=== PATIENT | male | born 1950 | race Caucasian/White ===

== ENCOUNTER 2019-05-13 00:20 | Observation (INO) ==
[2019-05-13] MEDS ORDERED: ASPIRIN PO ONE (00:36)
[2019-05-13] MEDS ORDERED: NITROGLYCERIN SL ONE (00:45)
[2019-05-13 01:19] LABS: BASO# 0.01 X1000 (0.0-0.2); BASO% 0.2 % (0.0-0.8); EOS# 0.25 X1000 (0.0-0.7); EOS% 3.8 % (0.0-10.0); HEMATOCRIT 37.3 % (42.0-52.0); HEMOGLOBIN 12.8 g/dL (14.0-18.0); IMM GRAN# 0.02 X1000 (0.0-0.04); IMM GRAN% 0.3 % (0.0-0.5); LYMPH# 1.18 X1000 (1.2-3.4); LYMPH% 17.7 % (20.5-51.1); MCH 31.2 PG (27-31); MCHC 34.3 g/dL (33-37); MONO# 0.59 X1000 (0.11-0.59); MONO% 8.9 % (1.7-9.3); MPV 10.5 FL (7.4-10.4); NEUT# 4.61 X1000 (1.4-6.5); NEUT% 69.1 % (42.2-75.2); PLT 124 X1000 (130-400); RDW 14.2 % (11.5-14.5); WBC 6.66 X1000 (4.8-10.8)
[2019-05-13 01:28] LABS: INR 0.92; PROTIME 13.1 Seconds (11.0-16.0)
[2019-05-13 01:29] LABS: PTT 28.1 Seconds (22.3-41.8)
[2019-05-13 01:50] LABS: ALB/GLOB RATIO 2.2; ALBUMIN 4.2 g/dL (3.5-5.0); CALCIUM 9.1 mg/dL (8.8-10.2); CREATININE 1.2 mg/dL (0.7-1.2); POTASSIUM 3.5 mmol/L (3.5-5.1); TOTAL BILIRUBIN 0.55 mg/dL (0.20-1.00); TOTAL PROTEIN 6.1 g/dL (6.3-8.3)
--- NOTE | 2019-05-13 02:16 | PROVIDER DOCUMENTATION ---
This chart was entered by Manisha Oneil Scribe, acting as scribe for Sy Crum DO. HPI-Chest Pain - General Chief Complaint: Chest Pain Stated Complaint: HEART PT--CHEST PAIN Time Seen by Provider: 05/13/19 00:45 Source: patient Allergies/Adverse Reactions: Patient Allergies Allergy/AdvReac Type Severity Reaction Status Date / Time meperidine HCl * Allergy Intermediate "CRAZY" Verified 07/24/13 16:46 [From Demerol] Penicillins Allergy Unknown Unknown Verified 07/24/13 16:46 Home Medications: Home Medication List Medication Instructions Recorded Confirmed Last Taken Type Amlodipine Besylate 10 mg PO DAILY 07/24/13 07/24/13 07/24/13 08:00 History Aspirin 81 mg PO DAILY 07/24/13 07/24/13 07/24/13 08:00 History Atorvastatin Calcium 40 mg PO QPM 07/24/13 07/24/13 07/23/13 22:00 History Clopidogrel Bisulfate [Clopidogrel] 75 mg PO DAILY 07/24/13 07/24/13 07/23/13 21:00 History Fosinopril Sodium 40 mg PO DAILY 07/24/13 07/24/13 07/24/13 08:00 History Gabapentin 100 mg PO TID 07/24/13 07/24/13 07/24/13 08:00 History Hydrocodone/APAP 10 mg/325 mg 1 each PO Q8H PRN PRN 07/24/13 07/24/13 07/24/13 16:30 History [[place]-10] Hydrocodone/Acetaminophen [[place] 1 each PO Q6H PRN PRN #12 tablet 07/24/13 U nknown Rx 10-325 Tablet] Ibuprofen [Motrin Drops] 600 mg PO TID 07/24/13 07/24/13 07/21/13 History Isosorbide Mononitrate [Imdur] 120 mg PO DAILY PRN 07/24/13 07/24/13 07/10/13 History Metformin HCl 500 mg PO BID 07/24/13 07/24/13 07/24/13 08:00 History Metoprolol Tartrate 50 mg PO BID 07/24/13 07/24/13 07/24/13 08:00 History Omeprazole 20 mg PO QAM 07/24/13 07/24/13 07/24/13 08:00 History Triamterene/Hydrochlorothiazid 1 each PO QAM 07/24/13 07/24/13 07/24/13 08:00 History [Triamterene-Hctz 37.5-25 mg Tb] - History of Present Illness-CP Nature of Presenting Problem: Pt is 68/m presenting to ED w/ CP that started about 11:30 tonight. pt was in bed and it woke him up from sleep. He sts that the pain is more left sided and sharp, rating it at 4/10. Pt did go down his L arm some. pt has hx of 3 stents that were put in in March and had open heart surgery 16 years ago. Pt denies any n/v, diaphoresis or edema. Pt did take 81mg aspirin at home. Location: reports: substernal (L sided) Chest Pain Radiation: reports: arms (L arm radiation) Quality of Pain: reports: sharp Severity in ED: moderate Onset/Duration: 1-3 hours ago Timing: still present Context/Activities at Onset: reports: sleep Modifying Factors: improves with: nothing Associated Symptoms: denies: abdominal pain, nausea, shortness of breath, vomi ting Nitro Today/Relief: no nitro taken today Aspirin Treatment Today: 81 mg x 1 Prior Chest Pain/Cardiac Workup: reports: other Similar Symptoms Previously?: Yes Recently Seen Here or By Another Healthcare Provider: No Review of Systems - Adult - REVIEW OF SYSTEMS - ADULT Constitutional: reports: no symptoms reported. denies: chills, fever Eyes: reports: no symptoms reported Ears, Nose, Mouth & Throat: reports: no symptoms reported Cardiovascular: reports: chest pain Respiratory: reports: no symptoms reported. denies: cough, shortness of breath Gastrointestinal: reports: no symptoms reported. denies: abdominal pain, diarrhea, nausea, vomiting Genitourinary: reports: no symptoms reported Musculoskeletal: reports: no symptoms reported Integumentary: reports: no symptoms reported Neurological: reports: no symptoms reported. denies: dizziness/vertigo, headache/migraines Psychiatric: reports: no symptoms reported Endocrine: reports: no symptoms reported Hematologic/Lymphatic: reports: no symptoms reported Allergic/Immunologic: reports: no symptoms reported All Other Systems: Reviewed and Negative Past History - Adult - PAST MEDICAL HISTORY-ADULT Review of Records: reports: Old Records Reviewed, Nursing Assessment Review, Medications Reviewed, Social history reviewed & non-contributory. Physical Exam-General - PHYSICAL EXAM-ADULT Initial Vital Signs Reviewed: Yes - CONSTITUTIONAL General Appearance: appears well - EYES Eyes: PERRL/EOMI, pink conjunctivae - HEAD, EARS, NOSE, MOUTH & THROAT HENMT: normocephalic/atraumatic, moist mucous membranes, normal ENT inspection, TMs normal, pharynx normal - NECK Neck: non-tender, full range of motion, supple, normal inspection - RESPIRATORY Respiratory: lungs clear - CARDIOVASCULAR Cardiovascular: regular rate, rhythm - GASTROINTESTINAL (ABDOMEN) Abdominal Exam: normal bowel sounds, non tender, soft - MUSCULOSKELETAL Back Exam: normal inspection, no CVA tenderness, no vertebral tenderness Extremity: normal range of motion, non-tender, normal gait, normal inspection, other (Minimal edema lower extremities Bilaterally) - SKIN Integumentary: normal color, warm/dry - NEUROLOGIC Neurologic: grossly normal - PSYCHIATRIC Psych/Mental Status: normal mood/affect, normal thought content, normal thought process, oriented x 3 - HEART Score HEART Score: History: Highly Suspicious HEART Score: ECG: Normal HEART Score: Age: > or = 65 Years HEART Score: Risk Factors for Atherosclerotic Disease: > or = 3 Risk Factors or History of Atherosclerotic Disease Progress - PLAN OF CARE/RESULTS Progress/Plan/Lab Results: Vital Signs - 8 hr 05/13/19 00:24 Temperature 97.5 F L Pulse Rate 72 Respiratory Rate 18 Blood Pressure 158/83 O2 Sat by Pulse Oximetry 94 L Laboratory Results - last 24 hr 05/13/19 05/13/19 05/13/19 00:54 00:54 00:54 WBC 6.66 RBC 4.10 L Hgb 12.8 L Hct 37.3 L MCV 91.0 MCH 31.2 H MCHC 34.3 RDW Std Deviation 14.2 Plt Count 124 L MPV 10.5 H Immature Gran % (Auto) 0.3 Neut % (Auto) 69.1 Lymph % (Auto) 17.7 L [place] % (Auto) 8.9 Eos % (Auto) 3.8 Baso % (Auto) 0.2 Immature Gran # (Auto) 0.02 Neut # (Auto) 4.61 Lymph # (Auto) 1.18 L [place] # (Auto) 0.59 Eos # (Auto) 0.25 Baso # (Auto) 0.01 PT INR PTT (Actin FS) Sodium 140 Potassium 3.5 Chloride 104 Carbon Dioxide 23 L Anion Gap 13 BUN 35 H Creatinine 1.2 Estimated GFR/1.73 m2 60 BUN/Creatinine Ratio 29 Glucose 97 Calculated Osmolality 287 Calcium 9.1 Total Bilirubin 0.55 AST 13 ALT 14 Alkaline Phosphatase 74 Creatine Kinase 93 Troponin T [id number] Pept 229 Total Protein 6.1 L Albumin 4.2 Globulin 1.9 Albumin/Globulin Ratio 2.2 05/13/19 05/13/19 00:54 00:54 WBC RBC Hgb Hct MCV MCH MCHC RDW Std Deviation Plt Count MPV Immature Gran % (Auto) Neut % (Auto) Lymph % (Auto) [place] % (Auto) Eos % (Auto) Baso % (Auto) Immature Gran # (Auto) Neut # (Auto) Lymph # (Auto) [place] # (Auto) Eos # (Auto) Baso # (Auto) PT 13.1 INR 0.92 PTT (Actin FS) 28.1 Sodium Potassium Chloride Carbon Dioxide Anion Gap BUN Creatinine Estimated GFR/1.73 m2 BUN/Creatinine Ratio Glucose Calculated Osmolality Calcium Total Bilirubin AST ALT Alkaline Phosphatase Creatine Kinase Troponin T < 0.010 Kfb-Q-[id number] Pept Total Protein Albumin Globulin Albumin/Globulin Ratio Orders Category Date Time Status Cardiac Monitoring DIRECTED Care 05/13/19 00:36 Active Oxygen Therapy- ED Nursing DIRECTED Care 05/13/19 00:36 Active Saline Loc NOW Care 05/13/19 00:36 Active CHEST-2 VIEWS [RAD] Stat Exams 05/13/19 00:36 Taken CBC WITH ELECTRONIC DIFF [HEME] Stat Lab 05/13/19 00:54 Completed CK PROFILE [SP CHEM] Stat Lab 05/13/19 00:54 Completed COMPREHENSIVE METABOLIC PANEL [CHEM] Stat Lab 05/13/19 00:54 Completed PRO B-NATRIURETIC PEPTIDE Stat Lab 05/13/19 00:54 Completed PROTIME WITH INR [COAG] Stat Lab 05/13/19 00:54 Completed PTT [COAG] Stat Lab 05/13/19 00:54 Completed TROPONIN T Stat Lab 05/13/19 00:54 Completed Aspirin Med 05/13/19 00:36 Discontinued 325 mg PO NOW ONE Nitroglycerin Sl [Nitroglycerin] Med 05/13/19 00:45 Discontinued 0.4 mg SL NOW ONE CP/SOB/Palp >45 yrs of Age Stat Oth 05/13/19 00:36 Ordered EKG [EKG] Stat Ther 05/13/19 00:22 Ordered Result Diagrams: 05/13/19 00:54 05/13/19 00:54 - EKG 1 Time of EKG reading by physician:: 00:37 EKG Read and Signed by:: Sy Crum EKG Interpretation (*Must complete 3 of following elements*): Abnormal (Sinus rhythm with premature atrial complexes with aberrant conduction, Nonspecific ST abnormality, Prolonged QT, Abnormal ECG) Rate: 66 Rhythm: Sinus rhythm [place]: normal QRS: normal - CONSULTS/PCP/HOSPITALIST Notification #1 *Consult/PCP/Hospitalist*: Dr. Frey Time Discussed: 02:14 Reason/Comments: Admit Consult Disposition: Admit Departure - Departure Date of Disposition Decision: 05/13/19 Time of Disposition Decision: 02:15 DIAGNOSIS: Chest pain Disposition: ADMITTED INPATIENT 09 Certified Medical Emergency: Emergent Condition: Stable Referrals and Follow-Ups: Celso Cannon MD [Primary Care Provider] - - Critical Care Note This patient required my direct & personal management of CC.: Yes Total Time (mins): 54 Critical Care Statement: This patient required my direct personal management to treat or rule out processes, the absence of which, could potentiallly result in sudden, clinically significant life or limb threatening deterioration. Attestation - Physician/ FAISAL Attestation Patient care was provided by Advanced Practice Provider:: No The physician spent face to face time with patient:: Yes Advanced Practice Provider documentation review:: Supervising physician onsite and consulted in the evaluation and care of this patient. The physician did have a face to face encounter with the patient. This chart was documented by the indicated scribe, (Manisha Oneil, Chiquiibbrittnee) and accurately reflects the services I performed and decisions made by me, Sy Crum DO, as attested by the provider's signature.
--- NOTE | 2019-05-13 04:39 | HISTORY AND PHYSICAL ---
PRIMARY CARE PHYSICIAN: Dr. Kang Cannon. CHIEF COMPLAINT: Chest pain. HISTORY OF PRESENTING ILLNESS: A 68-year-old male with a history of coronary artery disease, hypertension, diabetes mellitus type 2 and hyperlipidemia, who had presented to emergency department with several days history of having sharp chest pain. He states that he was having some shortness of breath and it was intermittent and he had some radiation to left upper extremity. Patient states the symptoms were worsening so subsequently had come to the emergency department. In the ED, he was evaluated and due to his presenting symptoms it was thought that he would need admission for further management. At the time of my examination, patient denied any headache, fever, chills, nausea, vomiting, diarrhea, hemoptysis, melena, weight changes, but complained of chest pain. PAST MEDICAL HISTORY: Includes hypertension, hyperlipidemia, diabetes mellitus type 2, coronary artery disease. PAST SURGICAL HISTORY: Coronary artery bypass, coronary stent, cholecystectomy, hernia repair, back surgery. ALLERGIES: Penicillin and Demerol. CURRENT MEDICATIONS: He does not recall and nursing staff will reconcile. SOCIAL HISTORY: He is a former smoker. Admits to social alcohol use. Denies any illicit drug use. FAMILY HISTORY: Positive for coronary artery disease in father. REVIEW OF SYSTEMS: Fourteen point review of systems as listed in HPI. Other systems negative. PHYSICAL EXAMINATION: GENERAL: Cooperative, friendly male. He is resting more comfortably now. VITAL SIGNS: Temperature 97.5 degrees, pulse 72, respiration 18, blood pressure 158/83. He is saturating 94%. HEENT: Atraumatic, normocephalic. Extraocular movements intact. PERRLA. NECK: Supple. CHEST: Clear to auscultation. CARDIOVASCULAR: Regular rate and rhythm. ABDOMEN: Soft, positive bowel sounds. EXTREMITIES: No edema. NEUROLOGIC: He is awake, alert, oriented x3. GENITOURINARY: No bladder distention. SKIN: Warm. LABORATORIES AND STUDIES: WBC 6.66, hemoglobin 12.8, hematocrit 37.3, platelets 124,000. Sodium 140, potassium 3.5, chloride 104, CO2 is 23, BUN is 35, creatinine is 1.2, glucose is 97. Troponin 0.010. ASSESSMENT: A 68-year-old male with a history of coronary artery disease, hypertension, hyperlipidemia and diabetes mellitus type 2, who had presented to the emergency department with several days history of having intermittent chest pain. We will place the patient for observation for further evaluation and management. 1. Chest pain. 2. Coronary artery disease. 3. Diabetes mellitus type 2. 4. Hypertension. PLAN: 1. We will admit patient to medical floor with telemetry. 2. Continue with cardiac workup. Check EKG, serial cardiac enzymes. Have patient continue on aspirin. We will use sublingual nitroglycerin p.r.n. chest pain. 3. We will consult Cardiology. 4. Put patient on glycemic protocol with sliding scale insulin regimen. 5. We will monitor blood pressure and resume antihypertensive agent. 6. Put patient on DVT prophylaxis with SCD. 7. We will continue to follow, and reassess and make further recommendation based on patient's clinical course. cc: Shola Frey MD
[2019-05-13] MEDS ORDERED: TYLENOL PO PRN (04:45)
[2019-05-13] MEDS ORDERED: NITROGLYCERIN SL PRN (04:45)
[2019-05-13] MEDS ORDERED: ZOFRAN IV PRN (04:45)
[2019-05-13] MEDS ORDERED: HUMULIN R SUBQ SCH (07:00)
--- NOTE | 2019-05-13 07:37 | Diag Imaging Result Doc PS360 ---
EXAM: CHEST-2 VIEWS 05/13/2019 HISTORY: chest pain TECHNIQUE: PA and lateral chest COMMENT: There is platelike opacity laterally in the left base which is only visible on the PA view. There are sternotomy wires and anterior mediastinal surgical clips. The heart size is at the upper limits of normal. There is no evidence of pleural fluid. The right lung is clear. There are no previous studies available for comparison. IMPRESSION: Atelectasis versus fibrosis in the lingula. Otherwise no evidence of acute disease. Electronically signed by Rommel Melgar 05/13/2019 7:35 AM
[2019-05-13] MEDS: PRILOSEC PO SCH (08:03)
[2019-05-13] MEDS ORDERED: PRILOSEC PO SCH (09:00)
[2019-05-13] MEDS ORDERED: ASPIRIN PO SCH (09:00)
[2019-05-13] MEDS ORDERED: RANEXA PO SCH (09:00)
[2019-05-13 11:52] LABS: HEMOGLOBIN A1C 6.5 % (4.8-6.0)
--- NOTE | 2019-05-13 11:54 | CARDIOLOGY CONSULTATION ---
DATE: 05/13/2019 REQUESTING PHYSICIAN: Hospitalist Service on behalf of Dr. Laura Cannon. REASON FOR CONSULTATION: Chest pain. HISTORY: Mr. 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 This discomfort usually resolves with rest after 5 minutes or so. Yesterday morning, 05/12/2019, he did the usual feeding of his horses, carrying several buckets of feed, and as he was doing that, he experienced left anterior chest discomfort and substernal chest discomfort, pressure-like, intense. There was some radiation to the arm. However, this subsided after 5 minutes. Then, at 11:30 p.m., he woke up from his sleep with significant substernal chest discomfort that this time radiated to the arm, more intense than before, and he got really concerned and came into the emergency room for evaluation. They did a 12-lead ECG at about 28 minutes past midnight on 05/13/2019 that shows sinus rhythm with PACs and no significant T-wave abnormality. That has been repeated at 8:42 this morning and shows sinus bradycardia with a rate of 59 beats per minute with a nonspecific T-wave flattening. One set of troponins had been checked at presentation and is negative. Next test is pending. A proBNP level was checked and was normal at 229, which is the upper normal level. Chest x-ray done in the ER showed atelectasis versus fibrosis in the lingula. I am seeing the patient at about 10:30 a.m., and he is clinically stable and comfortable. PAST MEDICAL HISTORY: Positive for coronary heart disease. He suffered a coronary syndrome about 18 years ago or so. He received a stent at that time. Subsequently, he underwent a sixtuple coronary bypass surgery in 2007 at the [facility] in [place]. He has been followed by Dr. Krish Bush all those years. After that bypass, he has had two more stents, one was done at the [facility] in [place], and one done at [facility]. The last one was about 6 years ago. He has not had any further issues since then. He has had claudication and has required a stent to the right leg. He does have chronic back pain that limits him from ambulating and doing things. He has diabetes mellitus type 2. He has hyperlipidemia. He has hypertension. He is obese. His body mass index is 31. He gained weight after he quit smoking. PAST SURGICAL HISTORY: Besides the coronary bypass surgery, he has had cholecystectomy, umbilical hernia repair, and he has had back surgery in the past (that was about 35 years ago). SOCIAL HISTORY: He has been to his for 52 years. They have 3 children, 2 boys, 1 girl. He quit smoking 11 years ago. He served in [employer], and he was exposed to "[employer] [place]." He uses the [facility] for medical care regularly. He goes to the [facility] to see Dr. Diaz. The patient is not a drinker. FAMILY HISTORY: Father had cardiac . The mother also suffered from heart disease. She used to go to Dr. Dario Bush for loss prevention associate. Both are . The patient is 1 of 4 siblings. The other siblings are healthy. HOME MEDICATIONS: Include amlodipine 10 mg daily, aspirin 81 mg daily, atorvastatin 80 mg at bedtime, clopidogrel 75 daily, diclofenac 1 tablet twice a day, fosinopril 40 mg daily, gabapentin 2 capsules twice a day, glipizide 1 tablet twice a day, hydralazine 1 tablet twice a day, metoprolol 50 twice a day, omeprazole 20 daily, oxybutynin 1 tablet daily, ranolazine 1 tablet daily, triamterene 1 tablet daily. ALLERGIES: Meperidine and penicillin. REVIEW OF SYSTEMS: He basically has claudication due to his back pain. He has a pattern of unstable angina that has changed over the course of the past 2 months. No other significant positives in his past history. Multiple symptoms were inquired. PHYSICAL EXAMINATION: Vital Signs: Blood pressure 129/71, temperature 97.6 degrees, pulse 66, respirations 20. General: He is awake, alert, oriented, in no distress. HEENT: Unremarkable. Chest: Sounds clear to auscultation and percussion. Heart: Sounds regular and rhythmic. He does have a systolic murmur over the aortic area. He may have aortic stenosis. Abdomen: Nontender, soft. No masses. No hepatomegaly. No bruit. Extremities: Palpable popliteal pulses, about 2+. Dorsalis pedis and posterior tibialis are very diminished in both legs. Neurological: Nonfocal. Moves 4 extremities. LABORATORY DATA: Sodium 140, potassium 3.5, BUN 35, creatinine 1.2. Liver function tests are normal. Albumin and globulin are normal. Hemoglobin 12.8, platelet count is 124,000. IMPRESSION: 1. Patient with a presentation consistent with crescendo angina pectoris/unstable angina pectoris. 2. History of severe coronary heart disease, previous aorto coronary bypass surgery , previous stent. 3. Patient with hypertension. 4. History of hyperlipidemia. 5. History of diabetes mellitus type 2. 6. History of chronic back pain. RECOMMENDATION: At this time, I would suggest to obtain an echocardiogram, mostly to evaluate his systolic murmur because it could be aortic stenosis. I would suggest to do a walking Lexiscan myocardial perfusion stress test to determine which area of myocardium is at risk, and then we will probably suggest to pursue a heart catheterization to reassess his coronary anatomy. Further advice will be forthcoming. Thank you again for the opportunity to participate in his evaluation. cc: MD Avila Doyle MD MTDD
[2019-05-13] MEDS: ASPIRIN PO SCH (12:11)
[2019-05-13] MEDS: LOPRESSOR PO SCH ×2 (12:11→21:45)
[2019-05-13] MEDS: GLUCOTROL PO SCH ×2 (12:12→21:45)
[2019-05-13] MEDS: NEURONTIN PO SCH ×2 (12:12→21:44)
[2019-05-13] MEDS: NORVASC PO SCH (12:13)
[2019-05-13] MEDS: MAXZIDE-25 PO SCH (12:13)
[2019-05-13] MEDS: PLAVIX PO SCH (12:13)
[2019-05-13] MEDS: LOVENOX SUBQ SCH ×2 (12:23→21:45)
[2019-05-13] MEDS: APRESOLINE PO SCH ×2 (12:43→21:45)
[2019-05-13] MEDS: MONOPRIL PO SCH (12:43)
[2019-05-13] MEDS ORDERED: LIPITOR PO SCH (21:00)
[2019-05-13] MEDS: RANEXA PO SCH (21:44)
[2019-05-14] MEDS: LOVENOX SUBQ SCH ×2 (00:48→13:26)
[2019-05-14] MEDS: PRILOSEC PO SCH (06:13)
--- NOTE | 2019-05-14 08:03 | EKG Report ---
Test Performed on : 05/13/2019 00:28:14 AM Test Reason : cp Blood Pressure : / mmHG Vent. Rate : 066 BPM Atrial Rate : 066 BPM P-R Int : 190 ms QRS Dur : 104 ms QT Int : 470 ms P-R-T Axes : 031 018 071 degrees QTc Int : 492 ms Sinus rhythm. with premature atrial complexes. with aberrant conduction. Nonspecific ST abnormality Prolonged QT Abnormal ECG No previous ECGs available Unconfirmed Result
--- NOTE | 2019-05-14 08:05 | ECHO REPORT ---
ORDER DATE: 05/13/2019 INTERPRETING PHYSICIAN: Dr. Romeo REQUESTING PHYSICIAN: CLINICAL INDICATIONS: This is a 68-year-old male with chest pain, heart murmur, previous coronary bypass surgery. M-MODE MEASUREMENTS: Right ventricle: cm. Left ventricle end diastole: 4.8 cm. Left ventricle end systole: 3.2 cm. Posterior wall: 1.4 cm. Interventricular septum: 1.4 cm. Left atrium: 4.6 cm. Aortic root: 4.0 cm. SUMMARY OF 2-DIMENSIONAL IMAGIN. The study was somewhat difficult. Optison was added to visualize endocardium a little better. 2. The left ventricular function is normal. Ejection fraction is estimated at 60% to 65%. 3. The aortic valve is calcified, and it showed restricted opening. The maximum gradient across this valve appears to be somewhere in the range of 38 to 45 mmHg with a mean gradient of 24 mmHg. The valve area is calculated by continuity equation to be at 1.4 cm sq suggesting a moderate degree of aortic stenosis. Color flow mapping is unremarkable. 4. Mitral annulus shows moderate calcification. Color flow mapping of mitral valve indicates mild degree of regurgitation. 5. Pulse wave Doppler of mitral inflow is normal. 6. Tissue Doppler of septal and lateral mitral annulus averages 5.5 cm. 7. There is very mild degree of mitral regurgitation. 8. Pulmonic valve shows no significant regurgitation. 9. Tricuspid valve shows mild degree of regurgitation. 10.Pulmonary pressure is estimated to be somewhere in the range of 33 to 38 mmHg. 11.There is no pericardial effusion, mass or thrombus. CONCLUSIONS: In summary, this study shows: 1. Excellent left ventricular systolic function. 2. Moderate aortic stenosis with a mean gradient of 24 mmHg. Aortic valve area of 1.4 cm sq. 3. Impaired left ventricular relaxation. 4. Pulmonary pressure in the order of 33 to 38 mmHg. Clinical correlation is recommended. cc: MD Avila Doyle MD
--- NOTE | 2019-05-14 09:25 | PROGRESS NOTE ---
DATE: 05/14/2019 SUBJECTIVE: Mr. Sweeney has a history of known ischemic heart disease. The patient was admitted to [facility] with unstable angina. He has had no further episodes of chest pain since admission. He has ruled out for myocardial ischemia by serial enzymes. A 2D echocardiogram demonstrated excellent LV systolic function with an EF of 60 to 65 percent, moderate aortic stenosis, impaired left ventricular relaxation and pulmonary pressure on the order of 33 to 38 mmHg. He had a previous cardiac catheterization, angioplasty and stenting of multiple arteries in March 2018. He had a distal 70% blockage along the origin of the intermediate branch as well as an 80% ostial lesion of the circumflex. He is followed by Dr. Bush in [place], [place]. Blood pressure remains well controlled. Systolic blood pressures range from 111 to 121 whereas his diastolic blood pressures range from 63 to 71. Blood sugars are ranging from 100 to 182. OBJECTIVE: Vital Signs: Temperature 97.8 degrees, pulse 57, respirations 16, blood pressure 121/71. Cardiovascular: Regular rate and rhythm with a 2/6 systolic ejection murmur at the left sternal margin. Lungs: Clear. Abdomen: Soft, nontender, with active bowel sounds. Extremities: Without edema. ASSESSMENT AND PLAN: 1. Unstable angina in the face of known ischemic heart disease. He has had previous coronary artery bypass graft surgery in 2001. We will continue aspirin, topical nitrates, aggressive blood pressure management, and we will proceed with a Myoview GXT with rest stress protocol. If he were to have new abnormalities on the Myoview GXT, we will make a referral for him to see for consideration of elective cardiac catheterization. 2. Hypertension. Blood pressure is stable. We will continue his current regimen of medications. 3. Type 2 [id number] diabetes mellitus. We will continue pattern sugars and a Humulin R sliding scale. cc: Avila Cannon MD MTDD
[2019-05-14] MEDS ORDERED: LEXISCAN ONE (11:01)
[2019-05-14] MEDS ORDERED: AMINOPHYLLINE ONE (11:24)
[2019-05-14] MEDS: NORVASC PO SCH (11:56)
[2019-05-14] MEDS: PLAVIX PO SCH (11:56)
[2019-05-14] MEDS: RANEXA PO SCH (11:56)
[2019-05-14] MEDS: APRESOLINE PO SCH (11:56)
[2019-05-14] MEDS: NEURONTIN PO SCH (11:57)
[2019-05-14] MEDS: LOPRESSOR PO SCH (11:57)
[2019-05-14] MEDS: GLUCOTROL PO SCH (11:57)
[2019-05-14] MEDS: MAXZIDE-25 PO SCH (11:57)
[2019-05-14] MEDS: MONOPRIL PO SCH (11:57)
[2019-05-14] MEDS: ASPIRIN PO SCH (11:57)
--- NOTE | 2019-05-14 14:10 | Diag Imaging Result Document ---
PROCEDURE NAME: MYOCARDIAL PERF SCAN, STR/REST - 05/14/2019 LEXISCAN CARDIOLITE STRESS TEST: Patient had a walking Lexiscan done. Patient developed left- sided chest discomfort. Following Lexiscan infusion aminophylline 125 mg was given. Subsequently chest pain abated. Stress electrocardiogram revealed 1 to 1.5 mm flat and down[address] depression in the inferior and lateral leads positive for ischemia. Cardiolite was injected. Gated SPECT images were obtained in standard views. 14.6 millicuries of Cardiolite was injected for the rest phase. 43.9 mCi of Cardiolite was injected for the stress phase. Images were obtained in standard views. Images revealed chest wall attenuation. There is moderate size severe grade reversible perfusion defect in the anterior wall and in the anterolateral wall diagnostic of ischemia. Left ventricular ejection fraction by gated SPECT was 65%. There is anterior wall hypokinesis. CONCLUSIONS: 1. The patient developed chest discomfort during Lexiscan infusion. 2. Positive Lexiscan stress electrocardiogram for ischemia. 3. Myocardial perfusion images revealed moderate-sized severe grade reversible perfusion defect in the anterior wall and anterolateral wall diagnostic of ischemia. 4. Left ventricular ejection fraction by gated SPECT was 65%. There is anterior wall hypokinesis. cc: MD Perez Styles MD
[2019-05-14 15:42] VITALS: BP 141/66
--- NOTE | 2019-05-14 20:37 | DISCHARGE SUMMARY ---
ADMISSION DATE: 05/13/2019 DISCHARGE DATE: 05/14/2019 DISCHARGE DIAGNOSES: 1. Chronic stable angina in the face of known ischemic heart disease. 2. Essential hypertension. 3. History of nicotine dependence. 4. Mixed hyperlipidemia. 5. 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 6. Lumbar spinal stenosis with neurogenic claudication. DISCHARGE INSTRUCTIONS: 1. Return to clinic in 1 week to see me, Dr. Kang Cannon, in anticipation of a transition of care visit. 2. Appointment with Dr. Krish Bush who is his wood getter for an elective arteriogram this week. 3. 1800 calorie ADA diet. 4. activity. No strenuous physical labor . MEDICATIONS: Tylenol 650 mg q.6 hours p.r.n. pain, amlodipine 10 mg daily, aspirin 81 mg daily, atorvastatin 80 mg at bedtime, clopidogrel 75 mg daily, Monopril 40 mg daily, Neurontin 300 mg 2 tablets t.i.d., glipizide 5 mg b.i.d., hydralazine 25 mg b.i.d., Imdur 30 mg daily, Lopressor 50 mg b.i.d., sublingual nitroglycerin 0.4 mg sublingually every 5 minutes p.r.n. pain, omeprazole 20 mg daily, Ranexa 1000 mg daily. DISCHARGE PHYSICAL EXAM: This is a well-developed, well-nourished, 68-year-old gentleman no apparent distress. Temperature 97.8 degrees, pulse 58, respiratory rate 16, BP 141/66. CV: Regular rate and rhythm. A 2/6 systolic ejection murmur. Lungs: Clear. Abdomen: Soft, nontender, with active bowel sounds. REASON FOR ADMISSION AND HOSPITAL COURSE: Mr. Ayaz Sweeney has a history of known ischemic heart disease. He has had coronary artery bypass graft surgery as well as multiple stenting procedures. The patient was admitted to [facility] for evaluation of chest pain. He was treated with topical nitrates, Lovenox, beta blockers and he ruled out for myocardial ischemia by serial enzymes. We performed a Myoview GXT with rest stress protocol. His Myoview GXT demonstrated moderate size severe grade reversible perfusion defect in the anterior wall diagnostic of ischemia. His ejection fraction was approximately 65%. There was anterior wall hypokinesis. A 2D echocardiogram demonstrated ejection fraction of 60 to 65 percent. There was moderate aortic stenosis with a mean gradient 24 mmHg. He had no further episodes of chest pain since admission. Dr. Bush had performed a cardiac catheterization in 2018 which was technically difficult and challenging. He has had no further episodes of chest pain. His cardiac enzymes are normal. His chest pain had been occurring off and on for several weeks. We will add Imdur 30 mg daily. He has sublingual nitroglycerin to take on a p.r.n. basis. I spoke to Dr. Bush by telephone earlier this afternoon and we have made arrangements for him to have a followup cardiac catheterization this week in [place], [place]. I have stressed to Mr. Sweeney the importance of avoiding any strenuous activity. I have asked him to return to the ER immediately should he have any recurrent chest pain or other symptoms such as near syncope, palpitations or recurrent chest pain. Having reached maximum hospital benefit, the patient was discharged in stable condition. cc: Avila Cannon MD
[2019-05-15] MEDS ORDERED: IMDUR PO SCH (09:00)
--- NOTE | 2019-05-15 22:05 | EKG Report ---
Test Performed on : 05/13/2019 08:42:18 AM Test Reason : chest pain/ASHD Blood Pressure : / mmHG Vent. Rate : 059 BPM Atrial Rate : 059 BPM P-R Int : 198 ms QRS Dur : 096 ms QT Int : 462 ms P-R-T Axes : 033 030 076 degrees QTc Int : 457 ms Sinus bradycardia. with premature atrial complexes. Nonspecific ST and T wave abnormality Abnormal ECG When compared with ECG of 13-MAY-2019 00:28, (Unconfirmed) No significant change was found Confirmed by Juan Burns MD ([id number]) on 05/15/2019 10:05:56 PM
== END 2019-05-14 17:39 | disposition home or self-care (01) ==
LOC: EDIPHOLD 00:20 → ED 00:20 → SUATTDRO 04:25 → 4N 07:59
PROVIDERS: ADMIT Internal Medicine; ATTEND Internal Medicine
CPT/HCPCS: 71020; 71046; 78452; 80053; 80061; 82550; 82948; 83036; 83721; 83880; 84484; 85025; 85610; 85730; 93005; 93017; 93306; 94761; A9270; A9500; C8929; J0280; J0820; J1650; J2785; Q9957; XXXXX